=== PATIENT | female | born 1980 | race Caucasian/White ===

== ENCOUNTER → 2016-12-01 | Outpatient (CLI) | payer OTHER | LOC: RT 14:04 | DX: J40 Bronchitis, not specified as acute or chronic (principal) | CPT/HCPCS: 94010 ==

== ENCOUNTER → 2020-11-01 | Outpatient (CLI) | payer OTHER | LOC: RAD 17:39 | DX: R06.02 Shortness of breath (principal) | CPT/HCPCS: 71046 ==

== ENCOUNTER 2020-11-17 18:49 | Emergency (ER) | payer BC, OTHER ==
[2020-11-17 19:30] LABS: HEMOGLOBIN 13.5 gm/dl (12.3-15.3); RED BLOOD COUNT 4.42 M/UL (4.00-5.10); WHITE BLOOD COUNT 18.9 K/UL (4.5-11.0)
[2020-11-17 19:49] LABS: BUN/CREATININE RATIO 10 (0-10)
== END 2020-11-18 15:50 | disposition home or self-care (01) ==
LOC: ER1 18:49
PROVIDERS: Emergency Medicine
DX: T44.7X2A Poisoning by beta-adrenoreceptor antagonists, intentional self-harm, initial encounter (principal); F32.9 Major depressive disorder, single episode, unspecified; Z20.822 Contact with and (suspected) exposure to COVID-19
CPT/HCPCS: 80053; 80307; 81001; 82550; 82553; 83605; 83690; 83735; 83874; 84484; 84703; 85025; 93005; 94664; 96374; 99285; G0480; J2405; U0002